=== PATIENT | male | born 1985 | race Caucasian/White ===

== ENCOUNTER 2025-05-06 18:28 | Emergency (ER) | payer MEDICAID ==
[~2025-05-06] VITALS: Ht 170.2 cm; Wt 75.3 kg
[2025-05-06] MEDS ORDERED: LISI20TA28 PO (19:22)
--- NOTE | 2025-05-06 19:23 | ELECTROCARDIOGRAPH REPORT ---
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 ALEIDA Berman Measurements Intervals [place] Rate: 83 P: 43 CO: 158 QRS: -7 QRSD: 104 T: 83 QT: 389 QTc: 457 Interpretive Statements Sinus rhythm Left atrial enlargement Left ventricular hypertrophy ST elevation, consider anterior injury Electronically Signed On 05-07-2025 16:52:[address] ALEIDA Berman Please click the below link to view image of tracing.
--- NOTE | 2025-05-06 19:23 | Physician Documentation ---
History of Present Illness ~ Chief Complaint: Hypertension Stated Complaint: HIGH BP Time Seen by MD: 19:09 Mode of Arrival: POV HPI 39-year-old male presents to the ED with a complaint of hypertension. He states he does not have a primary care doctor and went to the dentist today to have his tooth pulled and they advised him they would be unable to do so because his blood pressure is so elevated. States he does have headache and add that he does have a family history of hypertension and cardiac issues Denies any chest pain or shortness of breath or nausea vomiting Day of Onset: May 06, 2025 Medication Reconciliation Allergies: Coded Allergies: No Known Allergies (Unverified , 05/06/25) Scheduled Lisinopril (Lisinopril), 1 TAB PO DAILY Review of Systems All Other Systems at this time: Reviewed and Negative ROS As stated above in the HPI, otherwise all systems are reviewed and negative. Physical Exam Vital Signs: Temperature: 97.8, Source: Temporal, Heart Rate: 99, Respiratory Rate: 18, BP: 230/138, Pulse Oximetry: 99, Weight: 75.300 Physical Exam General: Alert, no apparent distress. HEENT: PERRL, EOMI, no injection, moist mucous membranes. Neck: Full range of motion. Respiratory: Lungs clear, no respiratory distress. Chest: No accessory muscle use. Cardiovascular: Regular rate and rhythm, no murmurs. Gastrointestinal: Soft, nontender, nondistended. Bowels sounds present. Extremities: Normal range of motion, no deformity. Neurologic: Oriented x4. Psychiatric: Normal mood and affect. Skin: Normal color, warm and dry. No edema, no ecchymosis.As stated above in the HPI, otherwise all systems are reviewed and negative. Progress Results/Orders Results/Orders Orders - XAVIER DIAZ COMPLIANCE SPECIALIST Monitor (05/06/25 19:24) Saline Lock (05/06/25 19:24) Oxygen (05/06/25 19:24) Chest,Single View (05/06/25 19:39) Completed Orders - XAVIER DIAZ COMPLIANCE SPECIALIST Hydralazine Tablet (Apresoline 10mg Tabl (05/06/25 19:25) Cbc/Diff (05/06/25 19:24) BMP (05/06/25 19:24) PBNP (05/06/25 19:24) Hs Troponin I W Calculations (05/06/25 19:24) Chest,Single View (05/06/25 19:39) Hydralazine Inj. (Apresoline Inj.) (05/06/25 20:15) * Orthostatic Vitals* Q12H (05/06/25 21:20) Tetanus/Pertuss/Diph Acell/Pf (Boostrix (05/06/25 21:20) Medications Received in ER Medications (Trade) Dose Ordered Sig/Ely Route PRN Reason Start Time Stop Time Status Last Admin Dose Admin (Apresoline 10mg tablet) 20 mg NOW ONCE PO 05/06/25 19:25 05/06/25 19:35 DC 05/06/25 19:42 20 MG Vital Signs 05/06/25 05/06/25 05/06/25 05/06/25 18:57 19:13 19:24 19:42 Temp 97.8 Pulse 99 77 83 Resp 14 18 14 B/P (MAP) 230/138 226/149 (174) Pulse Ox 99 99 O2 Flow Rate 0 05/06/25 05/06/25 05/06/25 05/06/25 20:30 21:00 21:01 21:33 Temp 97.8 Pulse 84 68 68 69 Resp 19 13 17 B/P (MAP) 220/121 (154) 120/66 (84) 160/100 Pulse Ox 97 95 98 O2 Flow Rate 0 Laboratory Tests Test 05/06/25 19:35 White Blood Count 9.4 Red Blood Count 5.26 Hemoglobin 16.4 Hematocrit 46.5 Mean Corpuscular Volume 88.3 Mean Corpuscular Hemoglobin 31.2 H Mean Corpuscular Hemoglobin Concent 35.3 Red Cell Distribution Width 13.4 Platelet Count 134 L Mean Platelet Volume 9.0 Neutrophils (%) (Auto) 66.4 Lymphocytes (%) (Auto) 23.7 Monocytes (%) (Auto) 6.8 Eosinophils (%) (Auto) 2.6 Basophils (%) (Auto) 0.5 Neutrophils # (Auto) 6.3 Lymphocytes # (Auto) 2.2 Monocytes # (Auto) 0.6 Eosinophils # (Auto) 0.2 Basophils # (Auto) 0.0 CBC Comment Sodium Level 138 Potassium Level 3.8 Chloride Level 100 Carbon Dioxide Level 29.6 Anion Gap 8 Blood Urea Nitrogen 15 Creatinine 0.83 Estimated GFR/1.73 m2 > 90 BUN/Creatinine Ratio 18.1 Glucose Level 100 Calcium Level 8.9 Troponin I High Sensitivity 21 Pro-B-Type Natriuretic Peptide 1552 H Albumin 4.5 Chemistry Comments Medical Decision Making Additional information obtaine: old records, N/A Findings Patient's x-ray per my interpretation showed signs of enlarged car cardio celiac silhouette. His x-ray also showed evidence of ventricular hypertrophy with normal sinus rhythm without any access deviation. His laboratory values I am a modestly elevated proBNP indicating her early onset CHF. He was difficult to medically manage with the hydralazine. Was not episode where he vasovagal after receiving oral hydralazine. Kept him here for a period to make sure that he was safe for discharge. I sent him home with 60 days of lisinopril because he states that he was unable to get in his primary care in until June Differential Dx:Considerations: Include CHF, Include HTN, essential, Include HTN, accelerated, Include HTN, malignant, Include HTN, encephalopathy, Include medical noncompliance, Include medication withdrawal, Include pulmonary edema, Include renal failure, Include -induced, Include other Departure Disposition: 01 HOME / SELF CARE / HOMELESS Impression: Primary Impression: Benign hypertension Discharge Instructions: Hypertension, Adult, [id number] Referrals: NO PRIMARY CARE PROVIDER (PCP) Prescriptions Lisinopril (Lisinopril) 20 Mg Tablet 1 TAB PO DAILY for 60 Days, #60 TAB Prov: XAVIER DIAZ NP 05/06/25 Signature Scribe Signature: r Attestation: Scribed for Xavier Diaz Armed Security Professional by Xavier Leon NP . 05/06/25 19:23 XAVIER DIAZ NP May 06, 2025 19:23
[2025-05-06 19:51] LABS: MEAN PLATELET VOLUME 9.0 FL (7.4-10.4); RED CELL DISTRIBUTION WIDTH 13.4 % (11.5-14.5)
--- NOTE | 2025-05-06 20:00 | RADIOLOGY REPORT ---
CHEST RADIOGRAPH Indication: htn Technique: Single frontal view of the chest was obtained. Comparison: None Findings: No focal consolidation. No significant pleural effusion. No pneumothorax. Enlarged cardiomediastinal silhouette. IMPRESSION: No acute pulmonary process.
[2025-05-06 20:07] LABS: CREATININE 0.83 MG/DL (0.60-1.10); PRO BRAIN NATRIURETIC PEPTIDE 1552 PG/ML (0-125); TOTAL CARBON DIOXIDE 29.6 MMOL/L (24-32); eCRCL 110 ML/MIN; eGFR > 90 ML/MIN
[2025-05-06] MEDS: hydrALAZINE 20mg/ml inj. IV ONE (21:00)
[2025-05-06] MEDS ORDERED: TETanus/Pertussis (Acell)/Diphther VAC/PF (Tdap-Adult) 0.5ml syringe IMVAC ONE (21:20)
[2025-05-06 21:33] VITALS: BP 160/100; PULSE 69; RESP 17; TEMP 97.8; O2SAT 98
== END 2025-05-06 21:39 | disposition home or self-care (01) ==
LOC: ER 18:28
DX: I10 Essential (primary) hypertension (principal); Z79.899 Other long term (current) drug therapy
CPT/HCPCS: 36415; 71045; 80048; 83880; 84484; 85025; 93005; 99285

== ENCOUNTER 2025-05-31 15:46 | Emergency (ER) | payer MEDICAID ==
[~2025-05-31] VITALS: Ht 170.2 cm; Wt 76.4 kg
[~2025-05-31 15:46] MED LIST: LISI20TA28 PO
--- NOTE | 2025-05-31 15:55 | Physician Documentation ---
History of Present Illness ~ Chief Complaint: Hypertension Stated Complaint: HIGH BP Time Seen by MD: 15:58 HPI Patient is a very pleasant 39-year-old male that presents to the emergency department for concerns for progressive hypertension over the last several days. Last seen in this ER on 05/06/25 and started on lisinopril 20 mg daily after being told he was too hypertensive for dental work. Presented to dentist today and was told he was again too hypertensive for dental work. Notes that he is checking his BP at home and has been consistently high. He sometimes takes two 20 mg lisinopril and indeed does admit that he did so today. He denies dyspnea, but does admit to some chest pain/tightness which he rates 2/10. Admits to smoking and drinks approx 2 alcoholic drinks per day. Denies meth/cocaine use. Medication Reconciliation Allergies: Coded Allergies: No Known Allergies (Unverified , 05/31/25) Scheduled Amlodipine* (Norvasc*), 1 TAB PO DAILY Hydrochlorothiazide (Hydrochlorothiazide), 1 TAB PO DAILY Lisinopril (Lisinopril), 1 TAB PO DAILY Lisinopril* (Lisinopril*), 1 TAB PO DAILY Review of Systems ROS As stated above in the HPI, otherwise all systems are reviewed and negative. Physical Exam Vital Signs: Temperature: 98.5, Source: Temporal, Heart Rate: 88, Respiratory Rate: 16, BP: 228/128, Pulse Oximetry: 98, Weight: 76.360 Oxygen Flow Rate: 0 Physical Exam General: Alert, no apparent distress. Neck: Full range of motion. Respiratory: Lungs clear, no respiratory distress. Chest: No accessory muscle use. Cardiovascular: Regular rate and rhythm, no murmurs. Gastrointestinal: Soft, nontender, nondistended. Bowels sounds present. Extremities: Normal range of motion, no deformity. Neurologic: Oriented x4. Psychiatric: Normal mood and affect. Skin: Normal color, warm and dry. No edema, no ecchymosis. Progress Progress Note 1748: Heart score calculated to be 3. Results/Orders Results/Orders Orders - WENDIE JOAQUIN COPYING MACHINE REPAIRER Urinalysis, Cult If Indicated (05/31/25 15:59) Nitroglycerin Sublingual Tab (Nitrostat (05/31/25 16:05) Monitor (05/31/25 ) Completed Orders - WENDIE JOAQUIN COPYING MACHINE REPAIRER BMP (05/31/25 15:59) Cbc/Diff (05/31/25 15:59) Hs Troponin I W Calculations (05/31/25 16:02) PBNP (05/31/25 16:02) Electrocardiogram (05/31/25 ) Hydrochlorothiazide Tablet (Hydrochlorot (05/31/25 17:35) Medications Received in ER Medications (Trade) Dose Ordered Sig/Ely Route PRN Reason Start Time Stop Time Status Last Admin Dose Admin (Nitrostat SL tablet) 0.4 mg ONCE PRN SL chest pain 05/31/25 16:05 05/31/25 17:31 0.4 MG (HYDROchlorothiazide tablet) 12.5 mg ONCE ONCE PO 05/31/25 17:35 05/31/25 17:36 DC 05/31/25 17:46 12.5 MG Vital Signs 05/31/25 05/31/25 05/31/25 15:49 16:51 17:43 Temp 98.5 Pulse 88 82 Resp 16 16 20 B/P (MAP) 228/128 176/112 (133) Pulse Ox 98 97 O2 Flow Rate 0 0 Laboratory Tests Test 05/31/25 16:24 White Blood Count 7.4 Red Blood Count 4.90 Hemoglobin 15.0 Hematocrit 43.4 Mean Corpuscular Volume 88.5 Mean Corpuscular Hemoglobin 30.6 Mean Corpuscular Hemoglobin Concent 34.6 Red Cell Distribution Width 13.5 Platelet Count 172 Mean Platelet Volume 9.3 Neutrophils (%) (Auto) 67.0 Lymphocytes (%) (Auto) 23.2 Monocytes (%) (Auto) 7.2 Eosinophils (%) (Auto) 2.2 Basophils (%) (Auto) 0.4 Neutrophils # (Auto) 5.0 Lymphocytes # (Auto) 1.7 Monocytes # (Auto) 0.5 Eosinophils # (Auto) 0.2 Basophils # (Auto) 0.0 CBC Comment Sodium Level 141 Potassium Level 3.7 Chloride Level 106 Carbon Dioxide Level 28.6 Anion Gap 6 L Blood Urea Nitrogen 19 H Creatinine 1.00 Estimated GFR/1.73 m2 82 BUN/Creatinine Ratio 19.0 Glucose Level 100 Calcium Level 9.3 Troponin I High Sensitivity 18 Pro-B-Type Natriuretic Peptide 575 H Albumin 3.9 Chemistry Comments EKG/XRAY/CT/US/VASC/MRI EKG : Additional Comment 1642 EKG interpreted to show RSR rate of 80. No ectopy. Probably LVH. QTC 418 ms. Medical Decision Making Additional information obtaine: old records Findings Seen here 05/06/25 for hypertension and started on lisinopril 20 mg daily. Differential Dx:Considerations: Include CHF, Include HTN, essential, Include HTN, accelerated, Include HTN, malignant, Include HTN, encephalopathy, Include medical noncompliance, Include medication withdrawal, Include pulmonary edema, Include renal failure, Include -induced Additional Information BP prior to discharge 176/112 and patient denying any CP or dyspnea. Discussed admission, patient preferred to d/c home with instructions to return if worse. Discussed need to gradually rather than abruptly normalize BP. Most Likely Diagnoses: Hypertensive urgency (severe uncontrolled primary hypertension): The patient presents with severe hypertension without evidence of acute end-organ damage. The negative troponin, absence of acute ischemic changes on EKG, and mild chest tightness relieved by nitroglycerin suggest no acute myocardial injury. According to the [employer], patients with severe hypertension without acute target organ damage should not receive aggressive short-term BP lowering or parenteral therapy. The LVH on EKG indicates chronic hypertensive heart disease rather than acute injury.[1] Hypertensive heart disease with diastolic dysfunction: The BNP of 575 pg/mL combined with LVH suggests underlying cardiac remodeling from chronic pressure overload. LV diastolic dysfunction is the first discernible manifestation of hypertensive heart disease, typically presenting with concentric LVH. The mildly elevated BNP without overt heart failure symptoms indicates compensated diastolic dysfunction rather than acute decompensation.[2] Demand ischemia from severe hypertension: The mild chest tightness relieved by nitroglycerin in the setting of severe hypertension suggests demand ischemia rather than acute coronary syndrome. The negative troponin and absence of acute ischemic EKG changes support this diagnosis. Severe hypertension increases myocardial oxygen demand, which can cause anginal symptoms even without obstructive coronary disease.[3] Early heart failure with preserved ejection fraction (HFpEF): The combination of LVH, elevated BNP, and hypertension raises concern for HFpEF, which commonly presents with dyspnea on exertion and may have chest discomfort. However, the absence of overt dyspnea or congestion on presentation suggests this is early or compensated disease. 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 Renal parenchymal disease and primary aldosteronism are common causes of secondary hypertension, with primary aldosteronism occurring in 5-10% of hypertensive patients and 20% of those with resistant hypertension. The patient's age and severity of hypertension make screening appropriate.[1][5] Departure Time of Disposition: 17:39 Impression: Primary Impression: Hypertension, accelerated Condition: Stable Discharge Instructions: Hypertension, Adult Additional Instructions: ### Hypertension Care Instructions What is happening with your blood pressure? Your blood pressure has been dangerously high (in the 200s over 110s), which is much higher than the normal range of less than 120/80. This has caused your heart to work harder than it should, leading to thickening of the heart muscle called left ventricular hypertrophy. While you don't have a heart attack, the chest tightness you experienced was a warning sign that your heart is under stress.[1] Why is this serious? High blood pressure is the leading cause of heart attacks, strokes, heart failure, and kidney disease. Your heart has already started to show changes from the high blood pressure, which means it's very important to get your blood pressure under control now to prevent serious complications in the future.[2][3] Your medications: You will be taking two blood pressure medications: - Lisinopril 40 mg - Take one pill by mouth every day. This medication helps relax your blood vessels and makes it easier for your heart to pump blood.[2][4] - Hydrochlorothiazide 12.5 mg - Take one pill by mouth every day. This is a "water pill" that helps your body get rid of extra salt and fluid, which lowers blood pressure.[2][4] Take both medications every day, even if you feel fine. Blood pressure problems usually don't cause symptoms until serious damage occurs. After one week: If you have no chest pain or other symptoms but your blood pressure is still above 150 (top number), you may need to start a third medication called amlodipine 2.5 mg daily. Keep checking your home BP. Important lifestyle changes you need to make: Making these changes is just as important as taking your medications:[5][6] Stop or reduce alcohol: You are currently drinking at least two alcoholic beverages daily. Reducing this to no more than two drinks per day for men can improve your blood pressure. Further reduction may provide additional benefits.[5] Quit tobacco: Smoking raises your blood pressure and greatly increases your risk of heart attack and stroke. Ask your doctor about smoking cessation programs.[5] Reduce salt: Aim for less than 1,500 mg of sodium per day. Avoid adding salt to food, and stay away from processed foods, fast foods, and canned soups.[5][6] Eat healthier: Follow the DASH diet, which means eating more fruits, vegetables, whole grains, and low-fat dairy products. Eat less red meat, sugar, and saturated fat.[5][6] Exercise regularly: Do moderate exercise (like brisk walking) for 40 minutes, 3-4 times per week.[5][6] Lose weight if needed: Even losing 9 pounds can help lower your blood pressure.[5] What to watch for: Call 911 immediately if you experience: - Severe chest pain - Trouble breathing - Sudden weakness or numbness on one side of your body - Sudden severe headache - Vision changes Follow-up care: You must establish care with a primary care doctor within one week. You will need monthly visits until your blood pressure is controlled, then visits every 3-6 months. You will also need blood tests to monitor your kidney function and electrolytes.[5] Monitoring your blood pressure at home: Consider getting a home blood pressure monitor to check your blood pressure regularly. This helps you and your doctor know if your medications are working. Make sure to use a validated device (check [employer] for approved monitors).[7] Why you need to take this seriously: You declined to stay in the hospital, which means you are responsible for taking your medications exactly as prescribed and making the lifestyle changes listed above. Missing doses or not following through could lead to a heart attack, stroke, or kidney failure. Your blood pressure is high enough that it could cause serious harm at any time. Remember: - Take your medications every day - Reduce alcohol and quit tobacco - Eat less salt and follow the DASH diet - Exercise regularly - See a primary care doctor within one week *call the office and discuss your need for urgent appt and TWO ER visits that have occurred. - Call 911 for chest pain, trouble breathing, or stroke symptoms Referrals: NO PRIMARY CARE PROVIDER (PCP) Prescriptions Amlodipine* (Norvasc*) 2.5 Mg Tablet 1 TAB PO DAILY for 60 Days, #60 TAB Prov: WENDIE JOAQUIN NP 05/31/25 Hydrochlorothiazide (Hydrochlorothiazide) 12.5 Mg Tablet 1 TAB PO DAILY for 60 Days, #60 TAB 0 Refills Prov: WENDIE JOAQUIN NP 05/31/25 Lisinopril* (Lisinopril*) 40 Mg Tablet 1 TAB PO DAILY for 60 Days, #60 TAB Prov: WENDIE JOAQUIN NP 05/31/25 Education Educated: Patient Educated regarding: diagnosis, treatment, prognosis, need for follow up Signature Scribe Signature: x Attestation: The note accurately reflects work and decisions made by me.Wendie Leon NP 05/31/25 16:07 ACE SIMMONS May 31, 2025 15:55 WENDIE JOAQUIN NP May 31, 2025 16:07
--- NOTE | 2025-05-31 16:45 | ELECTROCARDIOGRAPH REPORT ---
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
[2025-05-31 16:47] LABS: MEAN PLATELET VOLUME 9.3 FL (7.4-10.4); RED CELL DISTRIBUTION WIDTH 13.5 % (11.5-14.5)
[2025-05-31 17:08] LABS: CREATININE 1.00 MG/DL (0.60-1.10); PRO BRAIN NATRIURETIC PEPTIDE 575 PG/ML (0-125); TOTAL CARBON DIOXIDE 28.6 MMOL/L (24-32); eCRCL 91 ML/MIN; eGFR 82 ML/MIN
[2025-05-31] MEDS ORDERED: LISI40TA20 PO (17:40)
[2025-05-31] MEDS ORDERED: HYDR12.55 PO (17:40)
[2025-05-31] MEDS ORDERED: AMLO2.5T2 PO (17:40)
[2025-05-31 18:52] VITALS: TEMP 98.5
[2025-05-31 19:30] VITALS: PULSE 72
[2025-05-31 19:34] VITALS: BP 196/113; RESP 23; O2SAT 97
== END 2025-05-31 18:53 | disposition home or self-care (01) ==
LOC: ER 15:46
DX: I10 Essential (primary) hypertension (principal); F17.200 Nicotine dependence, unspecified, uncomplicated; Z79.899 Other long term (current) drug therapy
CPT/HCPCS: 36415; 80048; 83880; 84484; 85025; 93005; 99285